=== PATIENT | female | born 1940 | race Caucasian/White ===

== ENCOUNTER 2016-07-13 11:33 | Day surgery (SDC) | payer MEDICARE, OTHER ==
[2016-07-13] MEDS ORDERED: ONDANSETRON 4 MG/2ML 2 ML VIAL IV PRN (11:34)
[2016-07-13] MEDS ORDERED: LACTATED RINGERS 1,000 ML IV SCH (11:34)
[2016-07-13] MEDS ORDERED: LIDOCAINE 1% 2 ML VIAL ID PRN (11:34)
[2016-07-13] MEDS ORDERED: LIDOCAINE Viscous 2% 15 ML UDCUP ONE (12:14)
[2016-07-13] MEDS ORDERED: PROPOFOL 20 ML IV ONE (12:14)
[2016-07-13 17:39] LABS: HELICOBACTER PYLORII DETECTION NEGATIVE (NEGATIVE)
--- NOTE | 2016-07-20 14:20 | SURGPATH ---
[facility] [address] [place] [id number] Patient Name: THEODORA BUSTILLOS MR#: [id number] : 1940 Gender: F Specimen #: [id number] Collected: 07/13/2016 Received: 07/14/2016 Reported: 07/17/2016 Submitting Phys: MICHAEL TIJERINA Copy To Phys: [facility] Clinical History / Pre-Operative Diagnosis: GERD; DYSPHAGIA Specimen Source / Surgical Procedure Performed: #1-DUODENAL BULB BIOPSY; #2-ANTRAL BIOPSY; #3-UPPER ESOPHAGEAL BIOPSY Interpretation: 1. DUODENUM, BULB, BIOPSY: - NO DIAGNOSTIC ABNORMALITIES 2. STOMACH, ANTRUM, BIOPSY: - ANTRAL MUCOSA WITH NO DIAGNOSTIC ABNORMALITIES - NO HELICOBACTER ORGANISMS SEEN ON ROUTINE STAIN 3. ESOPHAGUS, UPPER, BIOPSY: - SQUAMOUS MUCOSA WITH NO DIAGNOSTIC ABNORMALITIES Electronically Signed Out Abril Colby M.D. Gross Description: #1 The specimen is received in a formalin filled container labeled with the patient's name and "duodenal bulb". Two blanc biopsies are 0.2 and 0.4 cm. Totally embedded in cassette #1. #2 The specimen is received in a formalin filled container labeled with the patient's name and "antral". Two blanc biopsies are 0.3 and 0.4 cm. Totally embedded in cassette #2. #3 The specimen is received in a formalin filled container labeled with the patient's name and "upper esophageal biopsy". Two mensah biopsies are 0.4 and 0.5 cm. Totally embedded in cassette #3. Roni Hardin PAlberto Microscopic Description: Part 1: Sections show duodenal mucosa with overall intact architecture with a villous to crypt ratio of three to one. No increased intraepithelial lymphocytes, gastric metaplasia, active duodenitis, or evidence of Giardia are seen on routine stain. No malignancy is seen. Part 2: Sections show gastric antral and oxyntic mucosa with overall intact architecture. No significant active or chronic inflammation is seen. No Helicobacter organisms are seen on routine stain. No dysplasia or malignancy is seen. Part 3: Sections show detached strips of squamous epithelium without columnar mucosa, intestinal metaplasia, or dysplasia. The squamous epithelium does not show basilar hyperplasia, papillary elongation, or increased intraepithelial eosinophils. 1: 67526 2: 99846 3: 00849 K21.9
== END 2016-07-13 15:14 | disposition home or self-care (01) ==
LOC: SDC 11:33
PROVIDERS: ATTEND Surgery
DX: K44.9 Diaphragmatic hernia without obstruction or gangrene (principal); K29.00 Acute gastritis without bleeding; I10 Essential (primary) hypertension; E78.00 Pure hypercholesterolemia, unspecified; Z87.891 Personal history of nicotine dependence
CPT/HCPCS: 87081; 43239; A9270